=== PATIENT | male | born 1955 | race Caucasian/White ===

== ENCOUNTER → 2020-11-14 | Outpatient (CLI) | payer OTHER ==
--- NOTE | 2020-11-14 15:02 | RAD ---
EXAM: Bilateral knees, standing view; left knee, 2 views. HISTORY: Pain. COMPARISON: 02/01/2020. FINDINGS: A frontal view both knees and lateral and sunrise views of the right knee are obtained. The re is a right knee arthroplasty in expected position. There is mild medial compartment joint space na rrowing, subchondral sclerosis and spurring involving the left knee. There is mild left patellofemora l compartment spurring. There is a small left knee effusion. There is mild left genu varus. IMPRESSION: 1. Mild medial compartment predominant osteoarthritis of the left knee with a small joint effusion an d genu varus. 2. Right knee arthroplasty in expected position. Electronically signed by: Gayle Binachi MD (11/14/2020 3:00 PM) [id number]
== END ==
LOC: RAD 14:23
PROVIDERS: ATTEND Physician Assistant
DX: M17.12 Unilateral primary osteoarthritis, left knee (principal); M25.462 Effusion, left knee; M21.162 Varus deformity, not elsewhere classified, left knee; Z96.651 Presence of right artificial knee joint
CPT/HCPCS: 73560; 73565